=== PATIENT | male | born 1985 | race Caucasian/White ===

== ENCOUNTER 2024-02-22 10:48 | Outpatient (AMB) | payer OTHER, SELFPAY ==
--- NOTE | 2024-02-22 10:54 | MHC.OFFVIS ---
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 Two months ago he had left-sided chest pressure at rest for which he went to [facility]. I do not have access to these records currently. He said he had blood workup done and eventually was discharged home. Obvious abnormality was noted on his testing reportedly. Since then he has persistent left-sided pressure-like feeling which is present most of the times. At times it gets worse but there is no clear aggravating or relieving factors. Clearly not linked with exercise. He does Peloton bike few times a week and does not noticed worsening discomfort during exercise. Other times he will have pressure which is bothersome. He is denying any acid reflux. He has been exercising and he has lost approximately 50-60 lb over the last year. He has anxiety. Family history is positive for coronary artery disease in his dad had SC at age 40. He is also reporting that he had hyperlipidemia at some stage and was on statin therapy to but has not been taking medications and has not had any further workup since then. [facility] Family History (Updated 02/22/24 @ 10:59 by Doreen Mcdaniel CMA) Father Heart attack Coronary artery disease (CAD) excluded Stented coronary artery Social History (Updated 02/22/24 @ 10:59 by Doreen Mcdaniel CMA) Alcohol intake: never Patient Tobacco Use Status: Never used Tobacco Review of Systems Const Denies chills, Denies fatigue, Denies fever(s), Denies frequent falls, Denies weakness, Denies weight gain and Denies weight loss ENT Denies dizziness Card Reports chest pain, Denies leg edema, Denies lightheadedness, Denies palpitations, Denies dyspnea, Denies dyspnea on exertion and Denies orthopnea Resp Denies cough, Denies dyspnea and Denies dyspnea on exertion GI Denies bloating and Denies change in bowel habits Musc Denies muscle weakness, Denies numbness and Denies tingling Neuro Denies dizziness, Denies frequent falls, Denies numbness, Denies tingling and Denies weakness Endo Denies fatigue and Denies palpitations Physical Exam Vital Signs: Last Vital Signs Pulse 56 02/22/24 10:57 BP 120/78 02/22/24 10:57 BMI result Body Mass Index 25.8 GENERAL APPEARANCE: in no acute distress, pleasant. Anxious appearing. NECK: no carotid bruit, no jugular venous distention. SKIN: no suspicious lesions, warm and dry. HEART: no murmurs, regular rate and rhythm. LUNGS: clear to auscultation bilaterally. ABDOMEN: soft, nontender. EXTREMITIES: no edema. PERIPHERAL PULSES: equal. NEUROLOGIC: No gross deficits, AAO X 3 Office Procedures EKG Details: Sinus bradycardia 59 beats per minute, normal axis, early repolarization, QTC 388 milliseconds. 46177-[id number], Complete Assessment & Plan Assessment & Plan (1) Chest pain: Code(s): R07.9 - Chest pain, unspecified Category: Medical (2) Hyperlipidemia: Code(s): E78.5 - Hyperlipidemia, unspecified Category: Medical Plan Pleasant 38-year-old gentleman with strong family history of coronary artery disease and personal history of hyperlipidemia presenting with chest pain. EKG is showing early repolarization. Blood pressure is well controlled. He has persistent discomfort approximately for 2 months. The clinical story is not consistent with angina but he has strong family history as well as hyperlipidemia previously. We will arrange a fasting lipid panel for him. I have advised him to do an exercise stress test. We will arrange that for him. I have also advised him to try some Prilosec over the counter. He will see us back in 3 months. Thank you for allowing me to participate in the care of your patient. Please feel free to contact me if you have any questions. Orders: Orders Lipid Panel Today E78.5 - Hyperlipidemia, unspecified CA stress test Today R07.9 - Chest pain, unspecified Coding Level of Care Code New Pt Level 4 (29801) Diagnoses Chest pain R07.9 Hyperlipidemia E78.5 CPT Codes EKG - CPT: 44182-[id number], Complete ([id number])
[2024-02-22 10:57] VITALS: BP 120/78; PULSE 56; BMI 25.8
== END 2024-02-22 11:50 | disposition home or self-care (01) ==
PROVIDERS: Visit Provider Internal Medicine Cardiovascular Disease
DX: R07.9 Chest pain, unspecified (principal); E78.5 Hyperlipidemia, unspecified
CPT/HCPCS: 93010; 99204

== ENCOUNTER → 2024-02-22 10:48 | Outpatient (BNVA) | payer OTHER, SELFPAY | PROVIDERS: Visit Provider Internal Medicine Cardiovascular Disease | DX: R07.9 Chest pain, unspecified (principal); E78.5 Hyperlipidemia, unspecified | CPT/HCPCS: 93005 ==

== ENCOUNTER → 2024-03-19 07:53 | Outpatient (REF) | payer OTHER, SELFPAY ==
--- NOTE | 2024-03-19 08:09 | CA_ITS ---
Acquisition Time: 2024-03-19 08:13:02 Total Exercise Time: 00:12:51 Test Indications: CHEST PAIN Medications: Protocol: LOI Max HR: 157 BPM 86% of Pred: 182 BPM Max BP: 178/070 mmHG Max Work Load: 15.0 METS Exercise stress test exercise 12 min 51 sec of Loi protocol achieving 86% MPHR, with mild SOB, no chest discomfort, with isolated PVC, wsith normotensive response to exercise, without EKG changes. Test reviewed with Dr. Enamorado Referred By: Barrera Webster Overread By: Elizabeth Landry
== END ==
LOC: HO.CARD 07:53
PROVIDERS: Visit Provider Internal Medicine Cardiovascular Disease
DX: R07.9 Chest pain, unspecified (principal)
CPT/HCPCS: 93017

== ENCOUNTER → 2024-03-19 08:09 | Outpatient (BNV) | payer OTHER, SELFPAY | PROVIDERS: Visit Provider Nurse Practitioner | DX: R06.02 Shortness of breath (principal); I49.3 Ventricular premature depolarization | CPT/HCPCS: 93016; 93018 ==

== ENCOUNTER 2025-08-18 14:27 | Outpatient (AMB) | payer OTHER, SELFPAY ==
--- NOTE | 2025-08-18 14:29 | A.PHYSOV ---
Vital Signs 08/18/25 14:35 Height 6 ft 2 in Weight 235 lb BMI 30.2 Intake Visit Reasons: NPV Jo Ref- left chest & rib pain Intake Note: Patient is a 40 year old male in office today as new patient for Left chest and rib pain. He has had pain for a year and half. Patient was in bed and thought he was having a heart attack. 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 The pain began approximately 1.5 years ago without any preceding injury. The pain is a daily occurrence with variable intensity and is described as being tender to the touch. It is localized to his side but sometimes goes into his back and is associated with occasional numbness and tingling in his arm. His symptoms are worse at night when he is trying to relax, but less noticeable during the day while he is occupied at work. At the onset of his symptoms, he experienced a panic attack and went to the hospital with concern for a heart attack; a cardiac workup including an EKG and a stress test was normal. His previous primary care provider attributed the symptoms to anxiety, and he was treated with various anxiety medications and amitriptyline for nerve pain, which he reports has not been effective. He uses Ativan as needed at night, which helps him sleep, but he does not want to take it daily. His medical history is notable for a small tear in his right rotator cuff, for which he received a cortisone injection a few weeks ago; this did not affect his chest pain. He was previously participating in physical therapy for his shoulder but stopped a few weeks ago. Pain Description - Onset: The pain started suddenly about 1.5 years ago, without any injury, while the patient was lying in bed. - Location: The pain is primarily located in his side, ribs, and chest, extending into the chest. - Radiation: The pain sometimes radiates into his back. - Character and Severity: The pain is present every day, though some days are worse than others, and the area is tender to touch. - Associated Symptoms: The patient reports occasional numbness and tingling in his arm. - Exacerbating Factors: The pain is worse at night when he is trying to relax and focuses on it. - Relieving Factors: The pain is less bothersome when his mind is occupied at work. - Interference with Function: The pain significantly disrupts his sleep and he reports his overall quality of life is awful. Results - Tests and Diagnostics: - EKG: Normal. - Cardiac stress test: Normal. - X-rays: Previously performed, results not discussed. [facility] Medical History (Updated 08/18/25 @ 16:57 by Jurgen Ramirez DO) Myofascial pain Intercostal neuralgia Surgical History (Updated 08/18/25 @ 14:35 by Latha Marin MA) History of ear surgery Family History (Updated 02/22/24 @ 10:59 by Doreen Mcdaniel [facility]) Father Heart attack Coronary artery disease (CAD) excluded Stented coronary artery Social History (Updated 08/18/25 @ 14:36 by Latha Marin MA) Household Members: Spouse Alcohol intake: current Alcohol intake frequency: holidays/special occasions only Patient Tobacco Use Status: Former Tobacco user Current occupational status: employed 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 - Neurological: Reports occasional numbness and tingling in his arm. - Psychiatric: Reports anxiety and history of a panic attack. - Constitutional: Reports inability to sleep at night due to pain. Physical Exam Exam Exam: Physical Exam - Lungs: Clear to auscultation bilaterally. - Chest Wall: Palpation reveals a specific point of maximal tenderness along a rib in the anterior-lateral chest just anterior to the mid axillary line. Other adjacent areas are non-tender. Neurological examination of upper and lower extremities was nonfocal. Patient ambulates without antalgia. Spurling maneuver was negative. Lhermitte's sign was negative Vital Signs: BMI result Body Mass Index 30.2 Office Procedures Details: With patient in the lateral recumbent position with left side up tender points along the rib just anterior to the mid axillary line was palpated. After skin was cleansed with alcohol 3.5 in 22 gauge spinal needle was introduced percutaneously and advanced toward the painful rib. Needle was advanced slowly just underneath the rib and total volume of 2 cc containing 40 mg of triamcinolone and 2% lidocaine was injected after negative aspiration for blood in without resistance. Intercostal Nerve Block - add # of Addnl if needed: 30211 - Single Procedure code (CPT) selection complete Office Meds Kenalog 40 mg/mL suspension for injection Performing Provider: Jurgen Ramirez DO [facility] Administered by: Jurgen Ramirez DO on 08/18/25 16:54 Dose Route Admin Location Dispensed Lot Number Expiration Date [facility] Senior Software Test Engineer 40 mg peripheral nerve block 1 mL [address]-0 [employer] Total Dispensed Waste 1 mL 0 % lidocaine (PF) 20 mg/mL (2 %) injection solution Performing Provider: Jurgen Ramirez DO Performing Location: [facility] Administered by: Jurgen Ramirez DO on 08/18/25 16:54 Dose Route Admin Location Dispensed Lot Number Expiration Date [facility] Senior Software Test Engineer 20 mg peripheral nerve block 5 mL [id number] [facility] Total Dispensed Waste 5 mL 80 % Assessment & Plan Assessment & Plan (1) Chest pain: Code(s): R07.9 - Chest pain, unspecified Category: Medical Qualifiers: Chest pain type: intercostal pain Qualified Code(s): R07.82 - Intercostal pain (2) Intercostal neuralgia: 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 - Analgesia: He is currently taking amitriptyline, but reports it is not helping his nerve pain. He takes Ativan PRN at night if the pain is severe, which helps him sleep. He has tried [id number] Icy Hot once. - Activities of Daily Living: The pain is present daily and significantly impacts his ability to sleep at night. - Aberrant Drug Related Behaviors: The patient expresses a desire to not take Ativan every day. Plan Patient was informed and verbally consented to the use of an ambient scribe for clinic note documentation during this visit. 1. Intercostal Neuralgia The patient's presentation of chronic, localized pain along a rib that is tender to palpation is suggestive of intercostal neuralgia or costochondritis. A cardiac etiology has been ruled out with a prior normal workup. Given the significant impact on his quality of life and sleep, and his willingness to proceed with treatment, an in-office cortisone injection to the point of maximal tenderness was performed after obtaining consent. Additionally, lidocaine 5% patches were prescribed for nighttime use, to be applied for 12 hours on and 12 hours off, to help manage the pain that is characteristically worse at night. 2. Anxiety Disorder, Unspecified The patient reports anxiety secondary to his chronic pain, for which he takes amitriptyline without significant benefit for the pain itself. He has PRN Ativan which helps him calm down and sleep when the pain is severe. The primary plan is to treat the underlying pain, which is expected to alleviate his anxiety. Discussion Notes I discussed with the patient that his symptoms are most consistent with either intercostal neuralgia or costochondritis, given the localized tenderness along the rib and the normal cardiac workup. I reviewed treatment options, including the use of prescription lidocaine 5% patches for 12 hours on and 12 hours off, particularly for his nighttime pain, and a cortisone injection to the area of maximal tenderness. The patient stated his quality of life is awful and that he is willing to try anything at this point. He provided consent for the injection, which was then performed in the office. I also provided a prescription for the lidocaine patches. Patient Instructions - You received a cortisone injection in your side today to help with your pain. - Apply one lidocaine patch to the most painful area of your chest/side at nighttime. - Keep the patch on for 12 hours, then remove it and leave the area without a patch for the next 12 hours. - You may continue to use Ativan as needed on nights when the pain is very bad and you are unable to sleep, but avoid taking it every day. Orders: Orders AMB Intercostal Nerve Block Today G58.8 - Other specified mononeuropathies Medications: New lidocaine 5% leave on most painful area for up to 12 hrs 3 patches topical DAILY 90 ea 3RF Atypical chest pain 30 days G58.8 - Other specified mononeuropathies, M79.18 - Myalgia, other site, R07.82 - Intercostal pain Coding Level of Care Code New Pt Level 4 (22418) Add On Problem Visit Only Diagnoses Intercostal pain R07.82 Chest pain type: intercostal pain Intercostal neuralgia G58.8 Myofascial pain M79.18 CPT Codes Intercostal Nerve Block - Intercostal Nerve Blocks: 15368 - Single ([id number])
[2025-08-18 14:35] VITALS: BMI 30.2
--- OUTSIDE RECORDS SUMMARY | 2025-08-18 20:52 | XMS_ITS | Clinical Summary ---
Author Organization [facility] Address [address] [place] [address] Care Team Providers Care Converting Supervisor Name Role Phone Unavailable Primary Care Provider Unavailabl e Social History Tobacco Use Types Packs/Day Years Used Date Smoking Tobacco: Never Assessed Sex and Gender Information Value Date Recorded Sex Assigned at Not on file Legal Sex Male 4:15 PM EDT Gender Identity Not on file Sexual Orientation Not on file Plan of Treatment Health Maintenance Due Date Last Done Comments Hepatitis C Virus Screening 1985 HIV Screening 1998 DTaP/Tdap/Td Vaccines (1 - Tdap) 2004 Hepatitis B Vaccines (1 of 3 - 19+ 3-dose series) 2004 Influenza Vaccine 04/04/2025 COVID-19 Vaccine (2024-2 6 season) 2025 HPV Vaccines (No Doses Required) Completed Pneumococcal Vaccine: Pediat josette (0-5 Years) and At-Risk Patients (6 to 49 Years) Aged Out No longer eligible b ased on patient's age to complete this topic Insurance [facility]
--- OUTSIDE RECORDS SUMMARY | 2025-08-18 20:52 | XMS_ITS | Clinical Summary ---
Author Organization [place] [address] [address] [facility]ly [facility] Building Address [address] [place], [place] [address] [address] Phone Care Team Providers Care Putty Worker Name Role Phone LinusEileen ortega Primary Care Provider [phone] Allergies No known active allergies Medications hydrOXYzine HCL (ATARAX) 25 mg tablet TAKE 1 TABLET(25 MG) BY MOUTH THREE TIMES DAILY 90 tablet 1 5 Active LORazepam (ATIVAN) 0.5 mg tablet Take 1 tablet (0.5 mg total) by mouth every 8 (eight) hours if needed for anxiety for up to 7 days. Max Daily Amount: 1.5 mg 21 tablet 5 Active atorvastatin (LIPITOR) 20 mg tablet Take 1 tablet (20 mg total) by mouth 1 (one) time each day. 90 tablet 1 5 Active busPIRone (BUSPAR) 5 mg tablet Take 1 tablet (5 mg total) by mouth 2 (two) times a day. 180 tablet 1 5 Active amitriptyline (ELAVIL) 25 mg tablet Take 1 tablet (25 mg total) by mouth at bedtime. 30 each 1 5 Active atorvastatin (LIPITOR) 20 mg tablet TAKE 1 TABLET BY MOUTH DAILY 90 tablet 1 5 07/29/20 25 Discontinu ed(Reorder ) busPIRone (BUSPAR) 5 mg tablet TAKE 1 TABLET(5 MG) BY MOUTH TWICE DAILY 60 tablet 5 5 11/25/20 25 Discontinu ed(Reorder ) amitriptyline (ELAVIL) 25 mg tablet Take 1 tablet (25 mg total) by mouth at bedtime. 30 each 1 07/29/20 Discontinu ed(Reorder ) Hospital, Clinic, or Other Facility Administered Medication Ordered Dose Route Frequency Start Date End Date Status lidocaine (XYLOCAINE) 1 % injection 4 mLIndications:Right rotator cuff tendinitis,Subacromi al bursitis of right shoulder joint,Chronic right shoulder pain 4 mL Once PRN Procedure 08/12/2025 08/12/2025 Ended triamcinolone acetonide (KENALOG-40) 40 mg/mL injection 40 mgIndications:Right rotator cuff tendinitis,Subacromi al bursitis of right shoulder joint,Chronic right shoulder pain 40 mg Once PRN Procedure 08/12/2025 08/12/2025 Ended Active Problems Problem Noted Date Diagnosed Date LORI (generalized anxiety disorder) 04/08/2025 Encounters Date Type Department Care Team Description 08/12/2025 8:30 AM EST Office Visit Orthopedic Surgery [facility] [address] [facility] [address] [place] [phone] Matthew Angela MD Left arm numbness (Primary Dx); Right rotator cuff tendinitis; Subacromial bursitis of right shoulder joint; Chronic right shoulder pain 07/17/2025 7:27 PM EST - 07/17/2025 11:59 PM EST Hospital Encounter [facility] MRI [address] [place] [phone] Biceps tendinitis of right shoulder; Right rotator cuff tendinitis; Subacromial bursitis of right shoulder joint Discharge Disposition: Home or Self Care 07/09/2025 8:00 AM EST Office Visit Orthopedic Surgery [facility] [address] [facility] [address] [place] [phone] Tad Cowart PA Biceps tendinitis of right shoulder (Primary Dx); Right rotator cuff tendinitis; Subacromial bursitis of right shoulder joint 06/02/2025 Results Follow-Up [facility] - [facility] [address] [place] [address] Lupe Wood NP 06/02/2025 [facility] [place] [phone] Lupe Wood NP 05/30/2025 1:34 PM EDT - 05/30/2025 11:59 PM EDT [facility] [address] [place], [place] [address] [place] [phone] Left-sided chest pain; Rib pain on left side; Chronic left shoulder pain Discharge Disposition: Home or Self Care 05/30/2025 1:34 PM EDT - 05/30/2025 11:59 PM EDT [facility] [address] [place], [place] [address] [place] [phone] Left-sided chest pain; Rib pain on left side; Chronic left shoulder pain Discharge Disposition: Home or Self Care 05/30/2025 1:15 PM EDT Office Visit Internal Medicine - [address] [phone] Lupe Wood NP Left-sided chest pain (Primary Dx); Rib pain on left side; Chronic left shoulder pain; Anxiety 05/28/2025 Telephone Internal Medicine - [address] [place], [place] [phone] Eileen Ibrahim DO 05/22/2025 Telephone Internal Medicine [address] [phone] Demetrio Dobbins PA from Last 3 Months Immunizations Immunization Administration Dates Next Due Tdap Tetanus diptheria acell ular pertussis (Boostrix; Adacel) 7yo and older 12/01/2020,06/10/2019 Tetanus Toxoid, Unspecified 05/07/2006 Surgical History Surgery Date Site/Laterality Comments OTHER SURGICAL HISTORY 2000 PROCEDURE: HISTORICAL EAR SURGERY Medical History Medical History Date Comments Mixed hyperlipidemia DX:Mixed hy perlipidemia Family History Medical History Relation Name Comments Hypertension Father Other: [place] in 40s Father Other: hyperlipidemia Father Prostate cancer Father Ovarian cancer Mother Relation Name Status Comments Father Alive Mother Alive Social History Tobacco Use Types Packs/Day Years Used Date Smoking Tobacco: Former Cigarettes 1 Q uit: 09/04/2021 Smokeless Tobacco: Never Tobacco Cessation:Counseling Given: Not Answered Alcohol Use Standard Drinks/Week Comments Yes 3 (1 standard drink = 0.6 oz pur e alcohol) Housing Instability Answer Date Recorde d Are you worried that in the next 2 months you may not have stable housing? No 12/08/2024 Food Access & Nutrition Answer Date Rec orded Do you have access to a vari ety of food including fruits and vegetables? Yes 12/08/2024 Access to Healthcare Answer Date Record ed Within the last 3 months, ho w many times did you visit the emergency department for your medical care? 0 12/08/2024 Health Literacy Answer Date Recorded How often do you need to hav e someone help you when you read instructions, pamphlets, or other written material from your doctor or pharmacy? Never 12/08/2024 Caregiver: How often do you need to have someone help you when you read instructions, pamphlets, or other written material from your doctor or pharmacy? Not on file 12/08/2024 Financial Risk Answer Date Recorded How hard is it for you to pa y for the very basics like food, housing, medical care, and air conditioning / heating? Not very hard 12/08/2024 Transportation Answer Date Recorded Has the lack of transportati on kept you from meetings, work, or from getting things needed for daily living? No Has the lack of transportati on kept you from medical appointments or from getting medications? No 12/08/2024 Social Isolation Answer Date Recorded How often do you feel lonely or isolated from those around you? Sometimes 12/08/2024 Food Risk Answer Date Recorded Within the past 12 months we worried whether our food would run out before we got money to buy more. Never true 12/08/2024 Within the past 12 months th e food we bought just didn't last and we didn't have money to get more. Never true 12/08/2024 Dependent Care Answer Date Recorded Do you need help finding or paying for care for your loved ones. For example, early childhood worker or elderly care for an older adult? No 12/08/2024 Education Answer Date Recorded Do you think completing more education or training, like finishing a GED, going to college, or learning a trade, would be helpful for you? No 12/08/2024 Employment and Income Answer Date Recor ded During the last four weeks, have you been actively looking for work? No 12/08/2024 Living Situation Answer Date Recorded What is your living situation? Unrecognized valu e 12/08/2024 Sex and Gender Information Value Date Recorded Sex Assigned at Not on file Legal Sex Male 10:43 AM EST Gender Identity Not on file Sexual Orientation Not on file Last Filed Vital Signs Vital Sign Reading Time Taken Comments Blood Pressure 139/79 05/30/2025 1:15 PM EDT A Pulse 64 05/30/2025 1:15 PM EDT Temperature - - Respiratory Rate 16 01/06/2025 8:19 AM EDT Oxygen Saturation - - Inhaled Oxygen Concentration - - Weight 102 kg (224 lb 6.4 oz) 05/30/2025 1:15 PM EDT Height 188 cm (6' 2 ) 05/30/2025 1:15 PM EDT Body Mass Index 28.81 05/30/2025 1:15 PM EDT Plan of Treatment Upcoming Encounters Date Type Department Care Team (Late st Contact Info) Description 08/26/2025 3:30 PM EST Office Visit Internal Medicine - [facility] [address] [place] [phone] Lupe Wood, FLIP [address] [place] [address] 10/13/2025 8:00 AM EST Office Visit Orthopedic Surgery - [place] [address] [facility] [address] [place] [phone] Matthew Angela MD [address] [place] [address] Health Maintenance Due Date Last Done Comments Hepatitis B Vaccines (1 of 3 - 19+ 3-dose series) 2004 HPV Vaccines (1 - 3-dose SCD M series) 2012 COVID-19 Vaccine ( - 2024-2 6 season) 2025 Influenza Vaccine (#1) 2025 Social Influencers of Health Screening 12/08/2025 12/08/2024 Cholesterol Screening (Lipid Panel) 04/09/2030 04/09/2025, 02/27/2024 DTaP,Tdap,and Td Vaccines (3 - Td or Tdap) 12/01/2030 12/01/2020, 06/10/2019 RSV Immunization Adult Patients (1 - 1-dose 75+ series) 2060 Depression Screening Completed 12/08/2024 HIB Vaccines Aged Out No longer eligi ble based on patient's age to complete this topic HIV Screening Discontinued Hepatitis A Vaccines Aged Out No long er eligible based on patient's age to complete this topic Hepatitis C Screening Discontinued IPV Vaccines Aged Out No longer eligi ble based on patient's age to complete this topic MMR Vaccines Aged Out No longer eligi ble based on patient's age to complete this topic Meningococcal ACWY Vaccine Aged Out N o longer eligible based on patient's age to complete this topic Meningococcal B Vaccine Aged Out No l onger eligible based on patient's age to complete this topic Pneumococcal Vaccine: Pediatrics (0 to 5 Years) and At-Risk Patients (6 to 49 Years) Aged Out No longer eligible based on patient's age to complete this topic RSV Immunization Patients Under 20 months Aged Out No longer eligible based on patient's age to complete this topic Varicella Vaccines Aged Out No longer eligible based on patient's age to complete this topic Procedures Procedure Name Priority Date/Time Associated Diagnosis Comments NC ARTHROCENTESIS/ASP IRATION/INJECTION MAJOR JOINT/BURSA W/O U/S GUIDANCE Routine 08/12/2025 8:30 AM EST Right rotator cuff tendinitis Subacromial bursitis of right shoulder joint Chronic right shoulder pain MR SHOULDER WO CONTRAST RIGHT Routine 07/17/2025 8:40 PM EST Biceps tendinitis of right shoulder Right rotator cuff tendinitis Subacromial bursitis of right shoulder joint XR CERVICAL SPINE 4-5 VIEWS Routine 05/30/2025 1:45 PM EDT Left-sided chest pain Rib pain on left side Chronic left shoulder pain XR THORACIC SPINE 2 VIEWS Routine 05/30/2025 1:45 PM EDT Left-sided chest pain Rib pain on left side Chronic left shoulder pain LIPID PANEL WITH REFLEX TO DIRECT LDL Routine 04/09/2025 9:00 AM EDT Mixed hyperlipidemia from Last 3 Months or Most Recently Relevant to Health Maintenance Results * NC ARTHROCENTESIS/ASPIRATION/INJECTION MAJOR JOINT/BURSA W/O U/S GUIDANCE (08/12/2025 8:30 AM EST) Narrative Matthew Angela MD - 08/12/2025 8:30 AM EST Matthew Angela MD 08/12/2025 2:07 PM L Inj/Asp: R subacromial bursa Indications: pain Details: 22 G needle, posterior approach Medications: 40 mg triamcinolone acetonide 40 mg/mL; 4 mL lidocaine 1 % Outcome: tolerated well, no immediate complications Site was prepped in standard fashion using alcohol swab, sterile technique was used to perform the injection, the patient tolerated the procedure well and a band-aid dressing was applied Informed Consent: Site: Right subacromial Laterality: Right Relevant images/test results available and reviewed: yes Health status cleared: Yes Procedure/treatment, purpose, treatment alternatives, risks/potential complications and benefits explained: yes Risk/complications/benefits details: Risk/complications/benefits details: Risks and benefits of corticosteroid injection were discussed, including risk of pain, bleeding, infection, tissue attenuation, tendon rupture, changes in skin color, and injury to surrounding structures such as arteries, veins and nerves. We also discussed the patient may develop worsening pain for a few days before having improvement in their symptoms. Patient questions answered: yes Patient agrees, verbalizes understanding, and wants to proceed: yes Consent given by: Patient Informed consent discussion completed by Physician/KELLEN with patient: Verbal Pre-procedure timeout performed: yes us Matthew Angela MD IN CLINIC/BEDSIDE ORDERABLES Fin al Result * MR Shoulder wo Contrast Right (07/17/2025 8:40 PM EST) Anatomical Region Laterality Modality Upper Extremities, Shoulder Right Magn etic Resonance 07/21/2025 4:02 AM EST Impressions 07/21/2025 4:10 AM EST 1. Findings suspicious for focal full-thickness tearing versus high-grade partial-thickness tearing of the distal supraspinatus tendon fibers located approximately 8 mm from the footprint measuring approximately 19 x 19 mm 2. Moderate right AC joint arthropathy with a small subacromial spur -------- FINAL REPORT -------- Dictated By: Germania Low Dictated Date: 07/21/2025 04:02 ET Assigned Physician: Germania Low Reviewed and Electronically Signed By: Germania Low Signed Date: 07/21/2025 04:10 ET Workstation ID: [id number] Transcribed By: Self Edit Transcribed Date: 07/21/2025 04:02 ET Narrative 07/21/2025 4:10 AM EST INDICATION: rotator cuff tear, biceps tendinitis chronic right shoulder pain with difficulty in throwing. COMPARISON: None TECHNIQUE: Multiplanar, multisequence MRI examination was performed of the right shoulder without intravenous contrast. FINDINGS: Rotator Cuff: Heterogeneity and discontinuity of the distal supraspinatus tendon fibers located approximately 8 mm from the footprint measuring approximately 19 x 19 mm (AP by TV) suspicious for focal full-thickness tearing versus high-grade partial-thickness tearing. Given the lack of surrounding fluid signal, this may be chronic in etiology. Infraspinatus tendon is intact. Mild subscapularis tendinosis. No significant muscle volume loss or fatty infiltration. Biceps Tendon: Intact. Fluid signal surrounding the extra-articular portion of the biceps tendon sheath which may represent focal tenosynovitis. Labrum: Heterogeneity of the anterior labrum suspicious for tearing. Bone/Cartilage: No acute fracture or dislocation. No significant cartilage thinning. AC Joint: Moderate AC joint arthropathy with a small subacromial spur Miscellaneous:Minimal subacromial/subdeltoid bursal fluid. Right shoulder joint fluid with fluid signal extending into the proximal biceps tendon sheath. Procedure Note Germania Low MD - 07/21/2025 INDICATION: rotator cuff tear, biceps tendinitis chronic right shoulderpain with difficulty in throwing. COMPARISON: None TECHNIQUE: Multiplanar, multisequence MRI examination was performed ofthe right shoulder without intravenous contrast. FINDINGS: Rotator Cuff: Heterogeneity and discontinuity of the distal supraspinatustendon fibers located approximately 8 mm from the footprint measuringapproximately 19 x 19 mm (AP by TV) suspicious for focal full-thicknesstearing versus high-grade partial-thickness tearing. Given the lack ofsurrounding fluid signal, this may be chronic in etiology. Infraspinatustendon is intact. Mild subscapularis tendinosis. No significant musclevolume loss or fatty infiltration. Biceps Tendon: Intact. Fluid signal surrounding the extra-articularportion of the biceps tendon sheath which may represent focaltenosynovitis. Labrum: Heterogeneity of the anterior labrum suspicious for tearing. Bone/Cartilage: No acute fracture or dislocation. No significantcartilage thinning. AC Joint: Moderate AC joint arthropathy with a small subacromial spur Miscellaneous:Minimal subacromial/subdeltoid bursal fluid. Right shoulderjoint fluid with fluid signal extending into the proximal biceps tendonsheath. IMPRESSION: 1. Findings suspicious for focal full-thickness tearing versus [id number]-dalacyvwz tearing of the distal supraspinatus tendon fiberslocated approximately 8 mm from the footprint measuring approximately 19 x19 mm 2. Moderate right AC joint arthropathy with a small subacromial spur -------- FINAL REPORT -------- Dictated By: Germania Low Dictated Date: 07/21/2025 04:02 ET Assigned Physician: Germania Low Reviewed and Electronically Signed By: Germania Low Signed Date: 07/21/2025 04:10 ET Workstation ID: [id number] Transcribed By: Self Edit Transcribed Date: 07/21/2025 04:02 ET Tad MAGALLON IMG MRI PROCEDURES Final Result * XR Cervical Spine 4-5 Views (05/30/2025 1:45 PM EDT) Anatomical Region Laterality Modality Spine, C-spine Radiographic Tresa ging 05/30/2025 6:38 PM EDT Impressions 05/30/2025 6:39 PM EDT No fracture or dislocation of the cervical spine. -------- FINAL REPORT -------- Dictated By: Sorin Stuart Dictated Date: 05/30/2025 18:38 ET Assigned Physician: Sorin Stuart Reviewed and Electronically Signed By: Sorin Stuart Signed Date: 05/30/2025 18:39 ET Workstation ID: [id number] Transcribed By: Self Edit Transcribed Date: 05/30/2025 18:38 ET Narrative 05/30/2025 6:39 PM EDT HISTORY: pain TECHNIQUE: 4 views of the cervical spine COMPARISON: None FINDINGS: The cervical spine is visualized from C1-C7. Vertebral body height and disc spaces are preserved. The cervical alignment is maintained without spondylolisthesis. Moderate uncovertebral arthropathy is present. No acute fracture or dislocation is seen. There is no prevertebral soft tissue swelling. Procedure Note Sorin Stuart MD - 05/30/2025 HISTORY: pain TECHNIQUE: 4 views of the cervical spine COMPARISON: None FINDINGS: The cervical spine is visualized from C1-C7. Vertebral body height anddisc spaces are preserved. The cervical alignment is maintained withoutspondylolisthesis. Moderate uncovertebral arthropathy is present. No acutefracture or dislocation is seen. There is no prevertebral soft tissueswelling. IMPRESSION: No fracture or dislocation of the cervical spine. -------- FINAL REPORT -------- Dictated By: Sorin Stuart Dictated Date: 05/30/2025 18:38 ET Assigned Physician: Sorin Stuart Reviewed and Electronically Signed By: Sorin Stuart Signed Date: 05/30/2025 18:39 ET Workstation ID: [id number] Transcribed By: Self Edit Transcribed Date: 05/30/2025 18:38 ET Lupe Wood NP IMG XR PROCEDURES Final Result * XR Thoracic Spine 2 Views (05/30/2025 1:45 PM EDT) Anatomical Region Laterality Modality Spine, T-spine Radiographic Tresa ging 05/30/2025 6:41 PM EDT Impressions 05/30/2025 6:42 PM EDT Unremarkable examination of the thoracic spine. -------- FINAL REPORT -------- Dictated By: Sorin Stuart Dictated Date: 05/30/2025 18:41 ET Assigned Physician: Sorin Stuart Reviewed and Electronically Signed By: Sorin Stuart Signed Date: 05/30/2025 18:42 ET Workstation ID: [id number] Transcribed By: Self Edit Transcribed Date: 05/30/2025 18:41 ET Narrative 05/30/2025 6:42 PM EDT HISTORY: pain TECHNIQUE: 3 views of the thoracic spine COMPARISON: None FINDINGS: The vertebral body and disc space heights are preserved. The upper thoracic spine is not well-visualized on the lateral view. Spinal alignment is maintained without evidence of spondylolisthesis. No acute fracture is identified. Procedure Note Sorni Stuart MD - 05/30/2025 HISTORY: pain TECHNIQUE: 3 views of the thoracic spine COMPARISON: None FINDINGS: The vertebral body and disc space heights are preserved. The upperthoracic spine is not well-visualized on the lateral view. Spinalalignment is maintained without evidence of spondylolisthesis. No acutefracture is identified. IMPRESSION: Unremarkable examination of the thoracic spine. -------- FINAL REPORT -------- Dictated By: Sorin Stuart Dictated Date: 05/30/2025 18:41 ET Assigned Physician: Sorin Stuart Reviewed and Electronically Signed By: Sorin Stuart Signed Date: 05/30/2025 18:42 ET Workstation ID: [id number] Transcribed By: Self Edit Transcribed Date: 05/30/2025 18:41 ET Lupe Wood NP IMG XR PROCEDURES Final Result * Lipid panel with reflex to direct LDL (04/09/2025 9:00 AM EDT) Cholesterol 166 0 - 200 mg/dL LAB CHEMISTRY METHOD 04/09/2025 12:22 PM EDT [facility] Triglycerides 67 0 - 150 mg/dL LAB CHEMISTRY METHOD 04/09/2025 12:22 PM EDT [facility] HDL 57 >=40 mg/dL LAB CHEMISTRY METHOD 04/09/2025 12:22 PM EDT [facility] LDL Calculated 96 0 - 100 mg/dL LAB CHEMISTRY METHOD 04/09/2025 12:22 PM EDT [facility] Comment:Estimated LDL Calcul ated using equation: Total cholesterol - HDL cholesterol - (Triglycerides/5) VLDL Cholesterol Wayne 13.4 mg/dL LAB CHEMISTRY METHOD 04/09/2025 12:22 PM EDT [facility] Non HDL Chol. (LDL+VLDL) 109 <145 mg/dL LAB CHEMISTRY METHOD 04/09/2025 12:22 PM EDT [facility] Chol/HDL Ratio 2.9 0.0 - 4.4 LAB CHEMISTRY METHOD 04/09/2025 12:22 PM EDT [facility] Blood Venous blood specimen / Unknown Venipuncture / Unknown 04/09/2025 9:00 AM EDT 04/09/2025 9:00 AM EDT Demetrio MAGALLON LAB BLOOD ORDERABLES Fi nal Result [facility] [address] [place] [address], from Last 3 Months or Most Recently Relevant to Health Maintenance Insurance [facility] Care Teams Putty Worker Relationship Specialty Start Date End Date Eileen Ibrahim DO [address] [place] [address] [place] [address] PCP - General Internal Medicine 07/23/24
--- OUTSIDE RECORDS SUMMARY | 2025-08-18 20:52 | XMS_ITS | Data Portability ---
Author Organization [place] - [facility], Allergy Address [address] [address] Care Team Providers Care Middle School Counselor Name Role Phone [facility] Primary Care Provi osei Assessment Encounter Date Assessment Date Assessment LastModified by Organization Details LastModified Time 04/28/2025 04/28/2025 39-year-old male with history of prior ear surgery, now demonstrating a central retraction pocket with some debris collection which was cleaned out today under the microscope. There is a deep central retraction pocket with squamous debris plug which was cleaned out today under the binocular microscope. The drum is adherent to the promontory, but there does not appear to be gross cholesteatoma formation. Audiometric testing reviewed with patient which shows a significant conductive hearing loss in the right ear which has worsened over the past 10 years compared to his previous audiogram in 2016 A CAT scan is recommended to evaluate the extent of scarring and determine the feasibility of surgical intervention. The imaging will help assess whether the condition is best treated surgically or with amplification technology, such as a hearing aid. The patient was educated on the advancements in hearing aid technology, including features like music streaming and phone connectivity, as an alternative to surgery. The patient expresses interest in pursuing treatment and agrees to proceed with the imaging. Arrangements will be made for the CAT scan at the [place] office, where the imaging can be reviewed immediately after completion to facilitate timely decision-making. Not available 04/28/2025 10:59:43 06/24/2025 06/24/2025 CAT scan of the temporal bones today is consistent with right sided chronic middle ear and mastoid effusion in the presence of an ear that has had TORP ossiculoplasty. The central retraction pocket appears to be limited to the mesotympanum and has not formed cholesteatoma yet. This is indicative of chronic eustachian tube dysfunction on the right. The presence of middle ear effusion is the likely cause of the significant worsening in the conductive hearing thresholds in the right ear. Today we discussed the options of amplification to remedy the hearing loss that he has. Alternatively we discussed the option of placement of short acting tympanostomy tube with concurrent balloon dilation of the eustachian tube to alleviate the middle ear effusion and set the stage for improved long-term eustachian tube function. Given the chronicity of the patient's eustachian tube dysfunction, patient is a good candidate for balloon dilation of the right eustachian tube. Alternative treatment options including continued observation and myringotomy with tube placement were discussed as well. I explained the procedure in detail. We discussed the 70-75% success rate in improving or reversing eustachian tube dysfunction. We discussed that there is good three year data showing the intermediate card tender success as well. We discussed the risks of surgery, including bleeding, infection, anesthetic risks, patulous eustachian tube, and the small potential for damage to the carotid artery. Nasopharyngoscopy today has ruled out any intranasal or nasopharyngeal contraindications to balloon dilation on either side. After full discussion, the patient would like to proceed with right balloon dilation of eustachian tube with concurrent placement of pressure equalization tube on the right. In addition, I will work to aziza the retraction pocket of the tympanic membrane. I have provided patient with the contact information for my surgical dressing maker. We will begin the scheduling process and see the patient back at the time of surgery. Patient will not require medical clearance from their primary care provider preoperatively. [email or web address] Not available 06/24/2025 10:00:38 08/05/2025 08/05/2025 40yo male presen ts following right-sided eustachian tube balloon dilation and right myringotomy tube placement on 07/02/[address] Mathew. Exam demonstrates well-placed and patent right PE tube. Audiometric testing demonstrates mild low-frequency conductive hearing loss (CHL) rising to normal sloping to mild high-frequency CHL. Amplification is not indicated at this time. Reviewed that tubes remain in place for 6-18 months on average. He will return for reevaluation in 6 months for reassessment. [email or web address] Not available 08/05/2025 16:18:55 Plan of Treatment Reminders Order Date Submit Date Provider Last Modified By Organization Details Last Modified Time Details Appointments Establish ed 10 2025 08:20A M AMEE MATHEW MD Not available Not available Not available Lab None recorded. Referral None recorded. Procedures None recorded. Surgeries nasophary ngoscopy, surgical, with dilation of eustachia n tube; unilatera l (SURG) 2024 025 BRYAN Not available 07/02/2025 09:18:[address], temporal bone, w/o contrast 2024 025 [email or web address] Not available 05/20/2025 10:07:21 Medication Orders None recorded. Patient TargetsNo targets recorded. Patient Instructions Encounter Date Encounter Id Patient Instructions Last Modified By Organization Details Last Modified Time 04/28/2025 [id number] - Schedule and complete the recommended CAT scan at the [place] office. - Discuss imaging results and treatment options, including surgical intervention or hearing aid technology, during the follow-up visit. [email or web address] Not available 04/28/2025 10:55:53 Please note: Parts of this encounter note have been generated by AI based on audio conversation. Patient consent was required prior to utilizing this technology. Content review was required prior to finalizing the note. [email or web address] Not available 04/28/2025 10:55:53 Reason for Referral None Reported. Results Created Date Observation Date Name Description Value Unit Range Abnormal Flag Note LastModifiedBy Organization Detail LastModifiedTime 04/29/2004/28/2025 audio gram No observ ation record ed. [email or web address] Not Available 2024 08:36:08 07/29/2006/24/2025 CT, tempo ral bone, w/o contr ast No observ ation record ed. [facility] [address], [place], [address], 07/30/2025 09:00:51 08/05/20 audio gram No observ ation record ed. BARCODE Not Available 2024 16:22:01 Result Notes None recorded. Problems Name Problem SNOMED Code Status Onset Date Resolution Date Notes Provider Name and Address Organization Details Recorded Time Conductive hearing loss of right ear with normal hearing on left side 5352840923 Active 2024 KHLOE BORJA, AUD 100 [facility],[address], [place], [address], [place] - [facility] 5 10:21:13 Adhesive otitis media of right middle ear 3097736134365 102 Active 2024 AMEE MATHEW MD 100 [facility],[address], [place], [address], [place] - [facility] 5 10:53:47 Chronic otitis media with effusion Active 2024 AMEE MATHEW MD 100 [facility],[address], [place], [address], [place] [facility] 5 09:16:16 Ossicular erosion 2118241986950 4 Active 2024 AMEE MATHEW MD 100 [facility], [place], [address], [place] [facility] 5 09:16:33 Dysfunction of right eustachian tube 5683642244165 101 Active 2024 AMEE MATHEW MD 100 [facility],[address], [place], [address], [place] [facility] 5 09:58:20 Problem Notes None recorded. Procedures Surgical History Date Name Laterality Status Provider Name and Address Organization Details Recorded Time 025 Air & Speech Audio with Tymps - 08480, 31542 & 97949 completed DARRION BABIN, JUNIOR 100 [facility],[address] [address], [place], [address], [facility] - [facility] 08/05/2025 15:12:00 025 NASOPHARYNGOSCOPY, SURGICAL, WITH DILATION OF EUSTACHIAN TUBE; UNILATERAL (SURG) completed Martinez Michel [place] - [facility] 07/04/2025 09:07:[address] temporal bones - Xoran completed AMEE MATHEW MD 100 [facility],[address] [address], [place], [address], [facility] - [facility] 06/24/2025 09:14:21 025 Fiberoptic Nasopharyngoscopy completed AMEE MATHEW MD 100 [facility],[address] [address], [place], [address], [facility] - [facility] 06/24/2025 09:57:11 025 Comp Audio with Tymps - 66046 & 56352 completed KHLOE BORJA, AUD [address] [facility],[address] [address], [place], [address], [facility] - [facility] 04/28/2025 10:20:57 025 Debridement of Ear canal right completed AMEE MATHEW MD [address] [facility],[address] [address], [place], [address], [facility] - [facility] 04/28/2025 10:59:10 Ear Surgery completed Edyta Castrejon [facility] 04/28/2025 10:04:23 Imaging Results None recorded. Procedure Notes None recorded. Medical Equipment None Reported. Allergies No known drug allergies Medications Name Sig Start Date Stop Date Status Note LastModified by Organization Details LastModified Time buspirone 5 mg tablet TAKE 1 TABLET BY MOUTH TWICE DAILY active Not Available Not Available No t Available atorvasta tin 20 mg tablet TAKE 1 TABLET BY MOUTH DAILY active Not Available Not Available No t Available ofloxacin 0.3 % ear drops INSTILL 4 DROPS INTO THE RIGHT EAR TWICE DAILY FOR 7 DAYS 08/02 completed Not Available Not Available Not Available amitripty line 25 mg tablet active Not Available Not Available No t Available lorazepam 0.5 mg tablet active Not Available Not Available Not Available simvastat in 5 mg tablet 04/28 completed Medicati on ID: [id number] B rand Name: simvasta tin Send Method: E-Prescr ibed Sub s Allowed: subs OK Medic ationGen ericName : simvasta tin Not Available Not Available Not Available hydroxyzi ne HCl 25 mg tablet TAKE 1 TABLET BY MOUTH EVERY 8 HOURS NEEDED FOR ANXIETY active Not Available Not Available No t Available Vitals Date Recorded Body height Body mass index (BMI) Body weight Provider Name and Address Organization Details Last Updated DateTime 04/28/2025 187.96 cm 28.2 kg/m2 37635.32 g Edyta Castrejon [place] - [facility] 04/28/2025 10:03:10 Date Recorded Body height Body mass index (BMI) Body weight Provider Name and Address Organization Details Last Updated DateTime 06/24/2025 187.96 cm 28.2 kg/m2 91099.32 g Edyta Castrejon [place] - [facility] 06/24/2025 09:34:25 Date Recorded Body height Body mass index (BMI) Body weight Provider Name and Address Organization Details Last Updated DateTime 08/05/2025 187.96 cm 28.2 kg/m2 33719.32 g Shantel Hernandez [place] - [facility] 08/05/2025 15:23:21 Social History Question Answer Notes LastModified by Organizat ion Details LastModified Time Tobacco Smoking Status Never Smoker Edyta echols [facility] 04/28/2025 10:03:46 How Many Years Have You Consumed Alcohol? 20 Information not available 08/05/2025 What Type Of Marketing Strategy Manager Do You Use? None Information not available 08/05/2025 How Many Alcoholic Drinks Do You Consume Per Day On Average? 1 Information not available 08/05/2025 Do You Have Any Pets? Yes Information not available 08/05/2025 Are You Passively Exposed To Smoke? No Information not available 08/05/2025 Are There Any Smokers In Your House? No Information not available 08/05/2025 Sex: Unknown Functional Status Question Answer Note LastModified by Organization Details LastModified Time How many times per week do you consume alcohol? 1-2 times per week Information not available 08/05/2025 Do you use any illicit or recreational drugs? No Information not available 08/05/2025 Do you or have you ever used any other forms of tobacco or nicotine? No Information not available 08/05/2025 What is your level of alcohol consumption? Occasional Information not available 08/05/2025 What type of noise exposure are you exposed to? noExposureToExcessiveNoise Infor mation not available 08/05/2025 Mental Status None recorded. Family History Nothing Reported. Medical History Condition Response High Cholesterol Y Past Encounters Encounter ID Performer Location Encounter Start Date Encounter Closed Date Diagnosis/Indication Diagnosis SNOMED-CT Code Diagnosis ICD10 Code Diagnosis IMO Codes Diagnosis Note [id number] AMEE MATHEW MD [facility] [address] [place] [address] 04/28/2025 09:43:38 04/28/2025 12:01:42 Conductive hearing loss of right ear with normal hearing on left side 8689679444 H90.11 [id number] Audiologic al evaluation results: 04/28/2025 Right ear: Moderate rising to mild conductive hearing loss with excellent word recognitio n. Left ear: Normal hearing with excellent word recognitio n. Tympanomet ry: Right Ear:Type B Left Ear:Type Ad Adhesive o titis media of right middle ear 7869844698 802081 H74.11 7099857 [id number] AMEE MATHEW MD [facility] [address] [address] 06/24/2025 09:11:47 06/24/2025 11:35:28 Adhesive otitis media of right middle ear 7793327261 375972 H74.11 0227867 Conductive hearing loss of right ear with normal hearing on left side 4495140198 H90.11 46594681 Chronic ot itis media with effusion 5792441966 H65.491 7935565519 Ossicular erosion 600435 3256 9104 H74.329 49871035 Dysfunctio n of right eustachian tube 5837741500 666694 H69.91 [id number] MICHELLE YOUNG PA-C [facility] [address] [address] 08/05/2025 14:53:24 08/05/2025 16:01:31 Dysfunction of right eustachian tube 8210646602 056085 H69.91 59080816 Conductive hearing loss of right ear with normal hearing on left side 2763445696 H90.11 26779898 Right Ear:Mild LF CHL through 500 Hz rising to normal through 3K Hz sloping to a mild HF CHL with excellent speech discrimina tion.Paten t tube. Health Concerns Section Related Observation LastModified by Organization Detai ls LastModified Time None Recorded Concern Status LastModified by Organization Details LastModified Time None Recorded Advance Directives Directive None Recorded Payers Insurance Date Sequence Insurance Name Policy Number Policy Traylor Covered Member ID Traylor Member ID Guarantor Name 08/05/2025 1 [facility] [id number] Claudio Narayan Bill [id number] Claudio Narayan Bill 04/28/2025 1 [facility] [id number] Claudio Narayan Bill [id number] Claudio Narayan Bill Notes Date Note Type Note Provider Name and Address Organization Details Recorded Time 04/28/2025 text/html Claudio Khan is a 39-year-old male who presents for evaluation of hearing loss in the right ear. The patient has a history of multiple ear surgeries performed during childhood by Dr. Lugo, including ossiculoplasty and tympanoplasty, with the last documented surgery occurring in 2000 or so. During the previous visit in 2015, the patient was noted to have primarily conductive hearing loss, and options discussed included observation, hearing aid use, or surgical intervention. Imaging, specifically a CAT scan, was recommended at that time but was not completed. The patient reports worsening hearing in the right ear since the last evaluation. Examination findings from the prior visit included a scarred eardrum with limited mobility, potentially due to thickening, fluid, or scar tissue. The patient expresses interest in pursuing treatment options to address the hearing loss. AMEE MATHEW MD [address] [place] [address], [address], [facility] - [facility] 04/28/2025 11:00:26 06/24/2025 text/html Patient with history of prior right sided ear surgery with Dr. Lugo around 2000 or so which included ossiculoplasty, now demonstrating central retraction pocket with some debris collection and a squamous plug, without gross cholesteatoma formation. He has significant conductive hearing loss in the right ear which has worsened over the past 10 years based on audiometric testing. He comes in today for CAT scan of the temporal bones to assess whether his condition can be best treated surgically or with amplification technology.Patient does have some recollection of having had a tympanostomy tube placed in the ear in the past. AMEE MATHEW MD 100 [facility],[address] [address], [place], [address], [facility] - [facility] 06/24/2025 10:01:04 08/05/2025 text/html ROS as noted in the HPI 40yo male presents following right-sided eustachian tube balloon dilation and right myringotomy tube placement on 07/02/[address] Mathew. Patient is doing well post-operatively. He is sensitive to sound, but adjusting to improved hearing. Denies ear pain or drainage. AMEE MATHEW MD [address] [place] [address],[place] [address], [place], [address], [facility] - [facility] 08/07/2025 09:03:08
--- OUTSIDE RECORDS SUMMARY | 2025-08-18 20:52 | XMS_ITS | Continuity of Care Document ---
Author Organization [place] - [facility], [facility] Address [address] [place] [address] Care Team Providers Care Administrative Assistant Name Role Phone [facility] AD[facility]IC[facility] Primary Care Provi osei Assessment Encounter Date Assessment Date Assessment LastModified by Organization Details LastModified Time 06/24/2025 06/24/2025 CAT scan of the temporal [...] is good three year data showing the terminal operations manager success as well. We discussed the risks [...] patient with the contact information for my salesperson surgical appliances. We will begin the scheduling process and see the patient back at the time of surgery. Patient will not require medical clearance from their primary care provider preoperatively. [email or web address] Not available 06/24/2025 10:00:38 Plan of Treatment Reminders Order Date Submit [...] 025 BRYAN Not available 07/02/2025 09:18:37 Imaging None recorded. Medication Orders None recorded. Patient TargetsNo targets recorded. Patient InstructionsNo instructions recorded. Reason for Referral None Reported. Results Created Date Observation Date Name Description Value Unit Range Abnormal Flag Note LastModifiedBy Organization Detail LastModifiedTime 07/29/2006/24/2025 CT, tempo ral bone, w/o contr ast No observ ation record ed. [email or web address] [facility] [address], [address], 07/30/2025 09:00:51 08/05/20 audio gram No observ ation record ed. BARCODE Not Available 2024 16:22:01 Result Notes None recorded. Problems Name Problem SNOMED Code Status Onset Date Resolution Date Notes Provider Name and Address Organization Details Recorded Time Conductive hearing loss of right ear with normal hearing on left side 3451084052 Active 2024 KHLOE BORJA, [facility] [address] [address], [place], [address] [place] [address] - [facility] 08/25/202 5 10:21:13 Adhesive otitis media of right middle ear 6293986490514 102 Active 2024 AMEE MATHEW MD [address] [address], [place], [address], [facility] - [facility] 5 10:53:47 Chronic otitis media with effusion Active 2024 AMEE MATHEW MD [address] [address], [place], [address], [facility] - [facility] 5 09:16:16 Ossicular erosion 1660044989148 4 Active 2024 AMEE MATHEW MD [address] [address], [place], [address], [facility] - [facility] 5 09:16:33 Dysfunction of right eustachian tube 2532271313921 101 Active 2024 AMEE MATHEW MD [address] [address], [place], [address], [facility] - [facility] 09:58:20 Problem Notes None recorded. Procedures Surgical History Date Name Laterality Status Provider Name and Address Organization Details Recorded Time 025 Air & Speech Audio with Tymps - 91314, 93944 & 72355 completed JUNIOR BOO 100 [facility],[address], [address], [facility] - [facility] 08/05/2025 15:12:00 025 NASOPHARYNGOSCOPY, SURGICAL, WITH DILATION OF EUSTACHIAN TUBE; UNILATERAL (SURG) completed Martinez Michel [place] - [facility] 07/04/2025 09:07:[address] temporal bones - Xoran completed AMEE MATHEW MD 100 [facility],[address], [address], [facility] - [facility] 06/24/2025 09:14:21 025 Fiberoptic Nasopharyngoscopy completed AMEE MATHEW MD 100 [facility],[address], [address], [facility] - [facility] 06/24/2025 09:57:11 025 Comp Audio with Tymps - 18189 & 59945 completed JUNIOR BOSCH 100 [facility],[address] [address], [place], [address], [facility] - [facility] 04/28/2025 10:20:57 025 Debridement of Ear canal right completed AMEE MATHEW MD 100 [facility],[address], [address], [facility] - [facility] 04/28/2025 10:59:10 Ear Surgery completed Edyta Castrejon [place] [facility] 04/28/2025 10:04:23 Imaging Results None recorded. Procedure [...] mg tablet 04/28 completed Medicati on ID: [id number] B rand Name: simvasta tin Send Method: [...] Updated DateTime 06/24/2025 187.96 cm 28.2 kg/m2 00711.32 g Edyta Castrejon [place] - [facility] 06/24/2025 09:34:25 Social History Question Answer Notes LastModified by Organizat ion Details LastModified Time Tobacco Smoking Status Never Smoker Edyta echols [place] - [facility] 04/28/2025 10:03:46 How Many Years Have You Consumed Alcohol? 20 Information not available 08/05/2025 What Type Of Fax Machine Operator Do You Use? None Information not available [...] ICD10 Code Diagnosis IMO Codes Diagnosis Note [id number] AMEE MATHEW MD [facility] [address] [address] 06/24/2025 09:11:47 06/24/2025 11:35:28 Adhesive otitis media of right middle ear 6786861786 426759 H74.11 1315899 Conductive hearing loss of right ear with normal hearing on left side 1906985283 H90.11 87572589 Chronic ot itis media with effusion 7557652181 H65.491 8271292872 Ossicular erosion 004881 8183 9104 H74.329 80517776 Dysfunctio n of right eustachian tube 1306622765 590181 H69.91 49910043 Health Concerns Section Related Observation LastModified by Organization Detai ls LastModified Time None Recorded Concern Status LastModified by Organization Details LastModified Time None Recorded Payers Encounter Date Sequence Insurance Name Policy Number Policy Traylor Covered Member ID Traylor Member ID Guarantor Name 06/24/2025 1 [facility] [id number] Claudio Khan [id number] Claudio Khan Notes Date Note Type Note Provider Name and Address Organization Details Recorded Time 06/24/2025 text/html Patient with history of prior [...] ear in the past. AMEE MATHEW MD [address] [place] [address], [place], [address], [place] - [facility] 06/24/2025 10:01:04
--- OUTSIDE RECORDS SUMMARY | 2025-08-18 20:52 | XMS_ITS | Continuity of Care Document ---
Author Organization [place] - [facility], [facility] Address [address] [place] [address] Care Team Providers Care Safety Attendant Name Role Phone [facility] Primary Care Provi osei Assessment Encounter Date Assessment Date Assessment LastModified by Organization Details LastModified Time 08/05/2025 08/05/2025 40yo male presents following right-sided eustachian tube [...] Referral None recorded. Procedures None recorded. Surgeries None recorded. Imaging None recorded. Medication Orders None recorded. Patient TargetsNo targets recorded. Patient InstructionsNo instructions recorded. Reason for Referral None Reported. Results Created Date Observation Date Name Description Value Unit Range Abnormal Flag Note LastModifiedBy Organization Detail LastModifiedTime 07/29/20 25 06/24/2025 CT, tempo ral bone, w/o contr ast No observ ation record ed. [facility] [address] [facility], [place], [address], 07/30/2025 09:00:51 08/05/20 25 audio gram No observ ation record ed. BARCODE Not Available 2024 16:22:01 Result Notes None recorded. 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 - [facility] [place] 5 10:21:13 Adhesive otitis media of right middle ear 7682627939001 102 Active 2024 AMEE MATHEW MD [address] [address], [place], [address], [facility] - [facility] [place] 5 10:53:47 Chronic otitis media with effusion Active 2024 AMEE MATHEW MD 100 [facility],[address] [address], [place], [address], [facility] - [facility] 09:16:16 Ossicular erosion 4296089328992 4 Active 2024 AMEE MATHEW MD [address] [facility], E [facility], [place], [address], [facility] - [facility] 5 09:16:33 Dysfunction of right eustachian tube 6577440042049 101 Active 2024 AMEE MATHEW MD 100 [facility], E [facility], [place], [address], [facility] - [facility] 5 09:58:20 Problem Notes None recorded. Procedures Surgical History Date Name Laterality Status Provider Name and Address Organization Details Recorded Time 025 Air & Speech Audio with Tymps - 66049, 44567 & 96007 completed DARRION BABIN, AUD 100 [facility] [address], [place], [address], [place] - [facility] [place] 08/05/2025 15:12:00 025 NASOPHARYNGOSCOPY, SURGICAL, WITH DILATION OF EUSTACHIAN TUBE; UNILATERAL (SURG) completed Mratinez Michel [place] - [facility] [place] 07/04/2025 09:07:[address] temporal bones - Xoran completed AMEE MATHEW MD [address] [facility], [place], [address], [facility] - [facility] 06/24/2025 09:14:21 025 Fiberoptic Nasopharyngoscopy completed AMEE MATHEW MD 100 [facility],[address] [address], [place], [address], [facility] - [facility] 06/24/2025 09:57:11 025 Comp Audio with Tymps - 51187 & 55083 completed JUNIOR BOSCH [address] [facility],[address] [address], [place], [address], [facility] - [facility] 04/28/2025 10:20:57 025 Debridement of Ear canal right completed AMEE MATHEW MD [address] [facility],[address] [address], [place], [address], [facility] - [facility] 04/28/2025 10:59:10 Ear Surgery completed Edyta Castrejon [facility] 04/28/2025 10:04:23 Imaging Results None recorded. Procedure [...] mg tablet 04/28 completed Medicati on ID: [id number] B rand Name: lev soriano Send Method: E-Prescr ibed Sub s Allowed: subs OK [facility] lev sor[facility] Not Available Not Available Not Available hydroxyzi ne HCl 25 mg tablet TAKE 1 TABLET BY MOUTH EVERY 8 HOURS NEEDED FOR ANXIETY active Not Available Not Available No t Available Vitals Date Recorded Body height Body mass index (BMI) Body weight Provider Name and Address Organization Details Last Updated DateTime 08/05/2025 187.96 cm 28.2 kg/m2 33988.32 g Shantel Hernandez [place] - [facility] 08/05/2025 15:23:21 Social History Question Answer Notes LastModified by Organizat ion Details LastModified Time Tobacco Smoking Status Never Smoker Edyta echols [place] - [facility] 04/28/2025 10:03:46 How Many Years Have You Consumed Alcohol? 20 Information not available 08/05/2025 What Type Of Medical Coding Instructor Do You Use? 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 Mathew. Patient is doing well post-operatively. He is sensitive to sound, but adjusting to improved hearing. Denies ear pain or drainage. AMEE MATHEW MD [address] [place] [address], [address], [facility] - [facility] 08/07/2025 09:03:08
--- OUTSIDE RECORDS SUMMARY | 2025-08-18 20:52 | XMS_ITS ---
[facility] Name [facility] Unknown Problems Problem Status Onset Date Problem Type Date of Resolution Source Sensorineural hearing loss (SNHL) of right ear, unspecified hearing status on contralateral side active EncounterDiagnosisAct [facility]
== END 2025-08-18 15:17 | disposition home or self-care (01) ==
LOC: HO.HPHYS 14:27
PROVIDERS: PCP Internal Medicine; Visit Provider Physical Medicine & Rehabilitation
DX: R07.82 Intercostal pain (principal); G58.8 Other specified mononeuropathies; M79.18 Myalgia, other site; R07.1 Chest pain on breathing
CPT/HCPCS: 64420; 99204; G2211

== ENCOUNTER → 2025-08-18 14:27 | Outpatient (BNVA) | payer OTHER, SELFPAY | PROVIDERS: PCP Internal Medicine; Visit Provider Physical Medicine & Rehabilitation | DX: R07.82 Intercostal pain (principal); G58.8 Other specified mononeuropathies; M79.18 Myalgia, other site | CPT/HCPCS: 64420; J2003; J3301 ==